=== PATIENT | female | born 1950 | race Caucasian/White ===

== ENCOUNTER → 2020-06-08 | Outpatient (CLI) | payer MEDICARE, OTHER ==
[~2020-06-08] MED LIST: CARDIZEM CD240 MG PO; CARVEDILOL3.125 MG PO; CRESTOR20 MG PO; ECOTRIN81 MG PO; HYDROCODON-ACE1 EAC6 PO; IMDUR ER TAB 3030 MG PO; LEVAQUIN500 MG PO; LEXAPRO10 MG PO; LISINOPRIL10 MG PO; NORCO 10-325 T1 EACH PO; OCUVITE WITH L1 EACH PO; SOTALOL AF80 MG PO; VITAMIN B-121000 MC2 PO; VITAMIN D32000 UNI1 PO; XARELTO20 MG PO
== END ==
LOC: EXRD 15:34
DX: Z09 Encounter for follow-up examination after completed treatment for conditions other than malignant neoplasm (principal); Z86.16 Personal history of COVID-19; R91.8 Other nonspecific abnormal finding of lung field
CPT/HCPCS: 71046

== ENCOUNTER → 2020-06-08 | Outpatient (CLI) | payer MEDICARE, OTHER | LOC: HEART 5 14:20 | DX: R06.02 Shortness of breath (principal); R94.2 Abnormal results of pulmonary function studies; F17.210 Nicotine dependence, cigarettes, uncomplicated | CPT/HCPCS: 94010; 94729 ==